=== PATIENT | male | born 1955 | race African-American/Black ===

== ENCOUNTER 2025-01-19 21:32 | Emergency (ER) | payer SELFPAY ==
[~2025-01-19] VITALS: Ht 172.7 cm; Wt 82.0 kg
[2025-01-19 21:35] VITALS: O2SAT 100
[2025-01-19 22:11] LABS: BASOPHILS % 1.3 % (0.0-2.0); EOSINOPHILS % 3.0 % (0.0-5.0); HEMATOCRIT. 35.6 % (42.0-52.0); HEMOGLOBIN. 11.9 g/dL (14.0-18.0); LYMPHOCYTES % 38.4 % (20.0-50.0); MEAN PLATELET VOLUME 9.2 fl (7.4-10.4); MONOCYTES % 10.2 % (2.0-8.0); NEUTROPHILS % 47.1 % (40.0-76.0); PLATELET 146 x1000/uL (130-400); RED BLOOD CELL COUNT 3.91 mill/uL (4.7-6.1); RED CELL DISTRIBUTION WIDTH 13.5 % (11.6-14.6)
[2025-01-19] MEDS: ACETAMINOPHEN 325MG TABLET PO ONE (22:14)
[2025-01-19] MEDS: TETANUS, DIPHTHERIA, PERTUSSIS VAC/PF 0.5ML (>10YR OLD) IM ONE (22:14)
[2025-01-19 22:21] LABS: INR 1.1
[2025-01-19 22:22] LABS: CREATININE 1.5 mg/dL (0.6-1.3); UREA NITROGEN BLOOD 13 mg/dL (9-23)
[2025-01-19 22:24] LABS: ASPARTATE AMINOTRANSFERASE 20 IU/L (<34); BILIRUBIN DIRECT 0.4 mg/dL (<=3.0); BILIRUBIN TOTAL 1.1 mg/dL (0.1-1.0); PROTEIN TOTAL 5.5 g/dL (6.0-8.3); TROPONIN I HIGH SENSITIVITY 14 ng/L (3.0-53)
[2025-01-20 01:01] LABS: TROPONIN I HIGH SENSITIVITY 18 ng/L (3.0-53)
[2025-01-20] MEDS ORDERED: ACET-2708 MT (01:17)
[2025-01-20 01:29] VITALS: BP 97/56; PULSE 76; RESP 13; TEMP 36.6; O2SAT 100
== END 2025-01-20 01:36 | disposition home or self-care (01) ==
LOC: ER 21:32 → CMPBEDREQ 01-20 03:17
DX: S01.81XA Laceration without foreign body of other part of head, initial encounter (principal); R55 Syncope and collapse; T50.905A Adverse effect of unspecified drugs, medicaments and biological substances, initial encounter; R06.02 Shortness of breath; W18.39XA Other fall on same level, initial encounter; Y93.89 Activity, other specified; Y92.89 Other specified places as the place of occurrence of the external cause; Y99.8 Other external cause status
CPT/HCPCS: 80076; 80048; 80320; 83880; 83735; 85025; 85610; 85730; 84484 ×2; 36415; 71045; 70450; 93005; 12001; 99285; Z7610; G0480